=== PATIENT | female | born 1950 | race Caucasian/White ===

== ENCOUNTER 2022-12-21 20:31 | Emergency (ER) | payer MEDICARE, SELFPAY ==
--- NOTE | 2022-12-21 20:35 | PC.NURSE ---
Pt did not want to wait and left before being triaged.
[2022-12-21 21:27] VITALS: BP 128/77; PULSE 103; RESP 17; TEMP 36.2; O2SAT 98
[2022-12-22 00:50] VITALS: BP 148/85; PULSE 93; RESP 20; TEMP 36.6; O2SAT 99
[2022-12-22 01:56] VITALS: BP 122/81; PULSE 89; RESP 15; O2SAT 100
--- NOTE | 2022-12-22 02:37 | ED.EPISTAXIS ---
HPI - Epistaxis General Chief complaint: Epistaxis Stated complaint: epistaxis Time Seen by Provider: 12/22/22 02:16 Source: patient and family History of Present Illness HPI Narrative: Patient experienced epistaxis starting at 10:30 while getting off the plane. She takes 81mg ASA every other day but no other anticoagulation. Experienced 1 episode preivously (why ASA changed from daily to every other day). No nausea. She spit out any blood that she thought was draining into mouth. Applied pressure to bridge of mouth and leaned back. Deneis dizzines or SOB> Nose clamp applied in the ED. Removed when placed in room, approximately 00:30. NO recurrence of epistaxis. Left nostril was the affected nare. Related Data Allergies Allergy/AdvReac Type Severity Reaction Status Date / Time No Known Allergies Allergy Verified 12/22/22 00:50 Exam Const: General: healthy appearing, no acute distress and alert; No confusion, diaphoretic or ill appearing Nutritional Appearance: well nourished Orientation/consciousness: patient oriented x3 Limitations: no limitations HENMT: Head: normal to inspection Face/Nose/Sinus: Normal external nose present Other: Nasal polyp in R nare posteriorly. Friable mucosal tissue along lateral aspect of left nare but without active bleeding. . Eyes: Conjunctivae: conjunctivae normal (without pallor) Neck: Neck: normal visual inspection Resp: Effort & Inspection: normal respiratory effort, not labored, no retractions, not tachypneic and no use of accessory muscles Cardio: Rate: tachycardic (initially, resolved) Skin: General skin exam: normal color, no jaundice and no pallor Neuro: General: patient oriented x3 Speech: normal speech Psych: Mental Status: mental status grossly normal Affect: normal affect, No Sad affect present and No Anxious affect present Attitude: cooperative Course Vital Signs Vital signs: Vital Signs Temperature 97.2 F L 12/21/22 21:27 Pulse Rate 103 H 12/21/22 21:27 Respiratory Rate 17 12/21/22 21:27 Blood Pressure 128/77 12/21/22 21:27 Pulse Oximetry 98 12/21/22 21:27 Oxygen Delivery Room Air 12/21/22 21:27 Temperature 97.6 F 12/22/22 02:47 Pulse Rate 96 12/22/22 02:47 Respiratory Rate 16 10/19/23 02:47 Blood Pressure 117/87 10/19/23 02:47 Pulse Oximetry 100 12/22/22 02:47 Oxygen Delivery Room Air 12/21/22 21:27 MDM - Epistaxis MDM Narrative Medical decision making narrative: Patient presents with epistaxis. She had just gotten off a plane so I suspect nasal drying secondary to environment. Patient had held pressure and inserted tampon prior which was then removed prior to arrival. Clamp applied in the ED and removed after without recurrence. Exam reassuring without active bleeding. No conjunctival pallor and I suspect minimal blood loss. Patient advised to keep hydrated and can apply petroleum jelly to moisten mucosa. Avoid digital trauma. Will discuss with PCP if should continue versus discontinue ASA. Given strict return precautions; verifies understanding. Stable for discharge. Had initially been tachycardic but resovled on reassessment. Differential Diagnosis Differential diagnosis: Likely anterior epistaxis Discharge Plan Discharge Clinical Impression: Epistaxis Patient Disposition: Home, Self-Care Condition: Improved Instructions: Antibiotic Form, Nosebleed (ED) Additional Instructions: YOu can use petroleum jelly/Vaseline in the nostrils for the next few days. Return to the ED if new/worsening symptoms or you feel faint/short of breath. Follow up with your PCP about if you need to change dosing or discontinue Aspirin. Follow-up/Referrals: UNKNOWN,DOCTOR [Non-Staff] - Time of Disposition: 02:38
[2022-12-22 02:47] VITALS: BP 117/87; PULSE 96; RESP 16; TEMP 36.4; O2SAT 100
== END 2022-12-22 02:59 | disposition home or self-care (01) ==
LOC: ANHED 12-22 02:56
PROVIDERS: Emergency Provider Student in an Organized Health Care Education/Training Program
DX: R04.0 Epistaxis (principal)
CPT/HCPCS: 99282